=== PATIENT | female | born 1940 | race Caucasian/White ===

== ENCOUNTER 2019-01-25 06:40 | Day surgery (SDC) | payer MEDICARE, MEDICAID ==
[2019-01-25] MEDS ORDERED: fentaNYL 100 MCG/2 ML VIAL IVP ONE (06:41)
[2019-01-25] MEDS ORDERED: MIDAZOLAM 2 MG/2 ML VIAL IVP ONE (06:41)
[2019-01-25] MEDS ORDERED: LACTATED RINGERS 1,000 ML IV ONE (07:10)
[2019-01-25 10:06] VITALS: BP 156/79
== END 2019-01-25 06:41 | disposition home or self-care (01) ==
LOC: SDS 06:40
PROVIDERS: ATTEND Surgery
PROC: 0DBN8ZZ Excision of Sigmoid Colon, Via Natural or Artificial Opening Endoscopic (ICD-10-PCS; 2019-01-25)
PROC: 0DBK8ZZ Excision of Ascending Colon, Via Natural or Artificial Opening Endoscopic (ICD-10-PCS; principal; 2019-01-25 08:30)
DX: R19.5 Other fecal abnormalities (principal); D12.2 Benign neoplasm of ascending colon; D12.5 Benign neoplasm of sigmoid colon; Z87.891 Personal history of nicotine dependence
CPT/HCPCS: 45385; J7120

== ENCOUNTER 2019-03-10 10:08 | Emergency (ER) | payer MEDICARE, MEDICAID ==
--- NOTE | 2019-03-10 10:24 | ED Physician Documentation ---
History of Present Illness - Stated complaint Stated Complaint: COUGH - Chief complaint Chief Complaint: General - Additonal information Additional information: This is a 78-year-old female who denies past medical history presents with 2 wee ks of cough. She states that she began developing nasal congestion cough 2 weeks ago this progressed and now she is coughing up yellow phlegm. She denies hemoptysis. She has not had a fever. She does not have any shortness of breath. No leg swelling. No chest pain. No abdominal pain. She has been taking DayQuil and NyQuil which helps temporarily. It sounds like her grandchildren have been sick and she thinks this is probably where she contracted her illness. Review of Systems Constitutional: denies: Fever Cardiac: denies: Chest pain / pressure Respiratory: reports: Cough. denies: Dyspnea PD PAST MEDICAL HISTORY - Past Medical History Cardiovascular: High cholesterol Respiratory: None Endocrine/Autoimmune: None GI: None : None HEENT: Chronic vision loss, Chronic hearing loss Psych: None Musculoskeletal: None Derm: None - Past Surgical History Ortho: Other - Present Medications Home Medications: Ambulatory Orders Medication Instructions Recorded Confirmed Atorvastatin Calcium 20 mg PO DAILY 01/24/19 01/24/19 Benzonatate [Tessalon Perle] 100 - 200 mg PO TID PRN #30 capsule 03/10/19 - Allergies Allergies/Adverse Reactions: Allergies Allergy/AdvReac Type Severity Reaction Status Date / Time No Known Drug Allergies Allergy Verified 03/10/19 10:11 PD ED PE NORMAL - Vitals Vital signs reviewed: Yes - General General: Alert and oriented X 3, No acute distress - HEENT HEENT: PERRL, Ears normal, Other (Posterior pharynx is mildly erythematous, no exudate.) - Neck Neck: Supple, no meningeal sign - Cardiac Cardiac: RRR, No murmur - Respiratory Respiratory: No respiratory distress, Clear bilaterally - Abdomen Abdomen: Soft, Non distended - Derm Derm: Warm and dry - Extremities Extremities: No deformity, No edema - Neuro Neuro: Alert and oriented X 3 - Psych Psych: Normal mood, Normal affect Results - Vitals Vitals: Oxygen O2 Source Room air - Rads (name of study) CXR Radiology: Other (Bronchial wall thickening without pneumonia, PTX, or effusion) PD MEDICAL DECISION MAKING - ED course Complexity details: considered differential (PNA, PTX, bronchitis, URI) ED course: Pt is very well appearing on exam, lungs are clear, HR is normal, and O2 saturation in the mid to high 90s on my exam. She has no chest pain or shortness of breath to suggest ACS or PE, no leg swelling, and her symptoms of sore throat and productive cough are most consistent with URI or viral bronchitis. XR shows findings consistent with bronchitis without PNA or other acute cardiopulmonary abnormality. She was given a dose of steroids and I prescribed tessalon perles and discussed symptomatic control. Pt agrees and continues to be very well appearing. I reviewed return precautions and PCP follow up and pt was discharged. On my repeat examination O2 saturation was 96% on room air prior to discharge, and she had normal and easy work of breathing. Departure - Departure Disposition: 01 Home, Self Care Clinical Impression: Viral upper respiratory illness Condition: Good Instructions: ED Viral Syndrome Follow-Up: Bryce Centeno MD [Primary Care Provider] - Prescriptions: Benzonatate [Tessalon Perle] 100 - 200 mg PO TID PRN #30 capsule PRN Reason: Cough Comments: Your chest x-ray does not show signs of a pneumonia or bacterial infection today, I think you likely have a viral bronchitis. I am prescribing you Tessal on Perles which should help with your cough, you may also take ibuprofen and Tylenol or an [id number] cough/flu reliever. Please get plenty of rest and drink adequate fluids. If you having worsening symptoms such as difficulty breathing, chest pain, blood in your sputum, or other concerning symptoms please return to the emergency department. Discharge Date/Time: 03/10/19 11:41
--- NOTE | 2019-03-10 11:22 | XRAY Report ---
Reason: cough for 2 weeks Procedure Date: 03/10/2019 Accession Number: [id number] / [id number] Procedure: XR - Chest 2 View X-Ray CPT Code: 26367 Final Report FULL RESULT: EXAM: CHEST RADIOGRAPHY EXAM DATE: 03/10/2019 10:39 AM. CLINICAL HISTORY: Cough for 2 weeks. COMPARISON: None. TECHNIQUE: 2 views. FINDINGS: Lungs/Pleura: No focal opacities evident. No pleural effusion. No pneumothorax. Increased lung volumes are noted. Bronchial wall thickening noted. Mediastinum: Heart and mediastinal contours are unremarkable. Other: None. IMPRESSION: 1. Nonspecific bronchial wall thickening could represent bronchitis or reactive airways disease. 2. No consolidation, effusions or pneumothorax. RADIA
[2019-03-10] MEDS ORDERED: DEXAMETHASONE 10 MG/ML VIAL PO STA (11:32)
[2019-03-10] MEDS ORDERED: CHERRY SYRUP 10 ML UDC PO ONE (11:32)
[2019-03-10 11:39] VITALS: BP 159/82
== END 2019-03-10 11:41 | disposition home or self-care (01) ==
LOC: ED 10:08
DX: J20.8 Acute bronchitis due to other specified organisms (principal); B97.89 Other viral agents as the cause of diseases classified elsewhere
CPT/HCPCS: 71046; 99283; 99284; A9270

== ENCOUNTER 2020-06-03 11:55 | Outpatient (CLI) | payer MEDICARE, MEDICAID | END 2020-06-03 11:56 | disposition home or self-care (01) | LOC: COV 11:55 | PROVIDERS: ATTEND Ophthalmology | DX: Z01.812 Encounter for preprocedural laboratory examination (principal); Z20.822 Contact with and (suspected) exposure to COVID-19 ==

== ENCOUNTER 2020-10-22 10:01 | Outpatient (CLI) | payer MEDICARE, MEDICAID | END 2020-10-22 10:02 | disposition home or self-care (01) | LOC: DI 10:01 | PROVIDERS: ATTEND Internal Medicine Cardiovascular Disease | DX: R93.1 Abnormal findings on diagnostic imaging of heart and coronary circulation (principal); R94.31 Abnormal electrocardiogram [ECG] [EKG] | CPT/HCPCS: 93306 ==

== ENCOUNTER 2023-02-06 12:18 | Emergency (ER) | payer MEDICARE, MEDICAID ==
--- NOTE | 2023-02-06 13:03 | XRAY Report ---
PROCEDURE: Chest 2 View X-Ray INDICATIONS: cough TECHNIQUE: 2 views of the chest were acquired. COMPARISON: None. FINDINGS: Surgical changes and devices: None. Lungs and pleura: Airspace opacity within the lingula appear Mediastinum: Mediastinal contours appear normal. Heart size is normal. Bones and chest wall: No suspicious bony lesions. Overlying soft tissues appear unremarkable. IMPRESSION: Airspace opacity within the lingula, suggestive of either pneumonia or atelectasis. Consider repeat r adiograph in one to 2 months to ensure resolution. Reviewed by: Jeremy Scott on 02/06/2023 12:02 PM [facility] Approved by: Jeremy Scott on 02/06/2023 12:02 PM [facility] Station ID: [id number]
[2023-02-06] MEDS ORDERED: cefTRIAXone 1 GM VIAL IM STA (14:47)
--- NOTE | 2023-02-06 14:50 | ED Physician Documentation ---
PD HPI DYSPNEA - Stated complaint Stated Complaint: SOA/WEAKNESS - Chief complaint Chief Complaint: Resp - History obtained from History obtained from: Patient - Additional information Additional information: The patient comes to the emergency department chief complaint of productive cough for the last few weeks. She states she has been producing white sputum and that she was finally put on doxycycline Last week at the walk-in clinic. She states she started to feel little bit better at first but then states the cough is now worse again. Patient denies fevers. She states she feels slightly short of breath but mostly, it is just the cough bothers her. No rhinorrhea or sore throat. No GI symptoms. The patient states she just feels tired. PD PAST MEDICAL HISTORY - Past Medical History Past Medical History: Yes Cardiovascular: High cholesterol Respiratory: None Endocrine/Autoimmune: None GI: None : None HEENT: Chronic vision loss, Chronic hearing loss Psych: None Musculoskeletal: None Derm: None - Past Surgical History Past Surgical History: Yes Ortho: Other - Present Medications Home Medications: Ambulatory Orders Medication Instructions Recorded Confirmed Atorvastatin Calcium 20 mg PO DAILY 01/24/19 02/06/23 Azithromycin [Zithromax] 0 mg PO DAILY #6 tablet 02/06/23 Doxycycline Hyclate 100 mg PO BID 02/06/23 02/06/23 Losartan Potassium 25 mg PO DAILY 02/06/23 02/06/23 Sertraline [Zoloft] 50 mg PO DAILY 02/06/23 02/06/23 - Allergies Allergies/Adverse Reactions: Allergies Allergy/AdvReac Type Severity Reaction Status Date / Time No Known Drug Allergies Allergy Verified 02/06/23 12:35 - Social History Does the pt smoke?: No Smoking Status: Never smoker Does the pt drink ETOH?: No Does the pt have substance abuse?: No PD ED PE NORMAL - Vitals Vital signs reviewed: Yes - General General: Alert and oriented X 3, No acute distress, Well developed/nourished - HEENT HEENT: Atraumatic, PERRL, EOMI, Moist mucous membranes - Neck Neck: Supple, no meningeal sign - Cardiac Cardiac: RRR, No murmur - Respiratory Respiratory: No respiratory distress, Other (Mild rales left lower lobe.) - Abdomen Abdomen: Soft, Non tender, Non distended - Derm Derm: Normal color, Warm and dry, No rash - Extremities Extremities: No deformity, No edema, No calf tenderness / cord - Neuro Neuro: Alert and oriented X 3, Other (Grossly intact) - Psych Psych: Normal mood, Normal affect Results - Vitals Vitals: Oxygen O2 Source Room air - Rads (name of study) Chest x-ray Relevant Findings:: Final report received, See rad report (Airspace opacity within the lingula, suggestive of either pneumonia or atelectasis.) PD Medical Decision Making - ED course Complexity details: reviewed results, re-evaluated patient, considered differential, d/w patient ED course: The patient was worked up with chest x-ray. Her chest x-ray did show atelectasis versus infiltrate in the lingula of the left lung. Given that the patient had had a productive cough for over 3 weeks now, and the fact that the doxycycline alone had not yielded results, I felt that the patient should be t reated fully for pneumonia with the appropriate antibiotic regimen. She was given doses of Rocephin and Zithromax here. I discussed with the patient the findings on exam and the need for follow-up if she does not feel like she is improving at all in the next week or so. We discussed the usual indications for return. Departure - Departure Disposition: 01 Home, Self Care Clinical Impression: Pneumonia Qualifiers: Pneumonia type: due to unspecified organism Laterality: left Lung location: unspecified part of lung Qualified Code(s): J18.9 - Pneumonia, unspecified organism Condition: Stable Instructions: ED Pneumonia Adult Prescriptions: Azithromycin [Zithromax] 0 mg PO DAILY #6 tablet Comments: Your x-ray shows a very small area of pneumonia in your left lung. It is not clear if this is new or if this is left over from what you are already being treated for. We have given you the shot of one kind of antibiotic and send a prescription for the other antibiotic To the [facility] in [place], your pharmacy of choice on record. You can pick this up in the morning. You should finish your doxycycline that you are already on, but also, take the new antibiotic. Make sure you take these every day as directed until both courses are finished. You may have a persistent cough for couple of weeks, but overall, this should improve as your body recovers from the respiratory illness. Forms: PCP List Discharge Date/Time: 02/06/23 15:29
[2023-02-06] MEDS ORDERED: LIDOCAINE 1% 2 ML VIAL SUBQ STA (15:03)
[2023-02-06 15:31] VITALS: BP 131/84; O2SAT 95
== END 2023-02-06 15:29 | disposition home or self-care (01) ==
LOC: ED 12:18
DX: J18.9 Pneumonia, unspecified organism (principal); E78.00 Pure hypercholesterolemia, unspecified
CPT/HCPCS: 96372; 99283